=== PATIENT | female | born 1955 | race African-American/Black ===

== ENCOUNTER 2016-10-20 09:37 | Emergency (ER) | payer MEDICARE, OTHER ==
[~2016-10-20 09:37] MED LIST: ALBU8I INH; BENZ100 PO; VENTAER INH; ZITH250T PO
[2016-10-20 09:40] VITALS: BP 180/97; PULSE 78; RESP 24; TEMP 97.4; O2SAT 96
[2016-10-20] MEDS ORDERED: ASPI1TAB69 PO (10:30)
[2016-10-20] MEDS ORDERED: PRED20 PO (11:06)
[2016-10-20] MEDS ORDERED: AZIT250T3 PO (11:06)
--- NOTE | 2016-10-20 11:06 | PD ---
HPI Chief Complaint: Cold / Flu Symptoms Time Seen by Provider: 10:30 Travel History International Travel<30 days: No Contact w/Intl Traveler<30days: No Traveled to known affect area: No History of Present Illness HPI This is a 60-year-old female who presents to the emergency department with 1 week of shortness of breath and productive cough with yellow sputum, constant, moderate severity, with no associated fevers or chills. She has had copious nasal congestion and some subjective chills. She says she uses a breathing pump at home but that has not been helping. She denies any chest pain or orthopnea. PFSH Past Medical History Arthritis: Yes GERD: Yes Hypertension: Yes (DX - 2007) Musculoskeletal: Yes (CHRONIC BACK PAIN - DISK DISPLAEMENT, PER PT - 2006) ?: Not Menopausal: Yes Past Surgical History Section: Yes Eye Surgery: Yes (CATARACT) Social History Alcohol Use: Yes (BEER, ONCE A WEEK) Tobacco Use: No Substance Use: No Allergies-Medications (Allergen,Severity, Reaction): Coded Allergies: No Known Allergies (Verified , 10/20/16) Reported Meds & Prescriptions Reported Meds & Active Scripts Active Reported Aspirin 81 Mg Tabdr 81 Mg PO DAILY Review of Systems Except as stated in HPI: all other systems reviewed are Neg Physical Exam Narrative GENERAL:Well appearing, no acute distress SKIN: Warm and dry. HEAD: Atraumatic. Normocephalic. EYES: Pupils equal and round. No injection or drainage. ENT: Moist mucous membranes. Nasal congestion. NECK: Trachea midline. CARDIOVASCULAR: Regular rate and rhythm. No murmur appreciated. RESPIRATORY: Diffuse wheezing, no accessory muscle use, speaking full sentences GASTROINTESTINAL: Abdomen soft, non-tender, nondistended. MUSCULOSKELETAL: No obvious deformities. NEUROLOGICAL: Awake and alert. No obvious cranial nerve deficits. Moving all extremities. PSYCHIATRIC: Appropriate mood and affect; insight and judgment normal. Data Data Last Documented VS Vital Signs Date Time Temp Pulse Resp B/P Pulse Ox O2 Delivery O2 Flow Rate FiO2 10/20/16 10:25 20 10/20/16 09:40 97.4 78 180/97 96 Room Air MDM Medical Decision Making Medical Screen Exam Complete: Yes Emergency Medical Condition: Yes Interpretation(s) Afebrile, hypertensive Differential Diagnosis Bronchitis, pneumonia, COPD exacerbation, congestive heart failure Narrative Course This is a 60-year-old female who has a history of bronchitis who presents to the emergency department with 1 week of shortness of breath, nasal congestion and chills. I suspect she has a viral syndrome precipitating acute bronchitis. She is diffusely wheezing on exam. She was prescribed bronchodilators and prednisone as well as outpatient antibiotics. I don't think she requires imaging or further diagnostic testing. I considered congestive heart failure but she has no peripheral edema and her constitutional symptoms more suggestive of infectious etiology of her symptoms. She is not hypoxic so I don't think an x-ray is warranted at this time. Diagnosis Primary Impression: Acute bronchitis Qualified Code: J20.9 - Acute bronchitis, unspecified organism Patient Instructions: General Instructions Additional Instructions: If you develop severe shortness of breath, chest pain, or difficulty breathing return to the emergency department. Use albuterol every 4 hours for the next 2 days. Then use as needed for wheezing. Complete your course of steroids. Complete your course of antibiotics. Follow up with your primary care physician in 2-3 days if your symptoms have not improved. Med/Other Pt SpecificInfo: Prescription(s) given Scripts Azithromycin 250 Mg [id number] Mg PO DIRECTED #6 TAB Take 2 tabs (500 mg) on day 1 then 1 tab daily x 4 days. Prov:Humaira Villareal MD 10/20/16 Prednisone 20 Mg Tab40 Mg PO DAILY 4 Days Prov:Humaira Villareal MD 10/20/16 Disposition: 01 DISCHARGE HOME Condition: Stable Humaira Villareal MD Oct 20, 2016 11:06
[2016-10-20] MEDS ORDERED: predniSONE 20 MG TAB PO ONE (11:15)
[2016-10-20] MEDS: RESP: ALBUTEROL 2.5 MG/IPRATROPIUM 0.5 MG NEB (SCH) INH (11:20)
== END 2016-10-20 12:29 | disposition home or self-care (01) ==
LOC: NEPE 09:37
DX: J20.9 Acute bronchitis, unspecified (principal); I10 Essential (primary) hypertension
CPT/HCPCS: 94640; 94664; 99283; J7512

== ENCOUNTER 2017-01-29 09:39 | Emergency (ER) | payer OTHER ==
[~2017-01-29] VITALS: Ht 160 cm; Wt 110.0 kg
[~2017-01-29 09:39] MED LIST changes: -ALBU8I INH; +ASPI1TAB69 PO; +AZIT250T3 PO; -BENZ100 PO; +PRED20 PO; -VENTAER INH; -ZITH250T PO
[2017-01-29 09:41] VITALS: BP 194/112; PULSE 74; RESP 15; TEMP 98.2; O2SAT 99
[2017-01-29 10:06] VITALS: BP 241/101; PULSE 82; RESP 20; O2SAT 97
--- NOTE | 2017-01-29 10:08 | PD ---
HPI Chief Complaint: Edema Time Seen by Provider: 10:04 Travel History International Travel<30 days: No Contact w/Intl Traveler<30days: No Traveled to known affect area: No History of Present Illness HPI 61-year-old female with history of hypertension, presents to the ER today because she has had several days' history of increased swelling to her legs but the left leg is more swollen than the right. She states it feels irritated. She admits she has been having some mild shortness of breath intermittently. She denies any chest pains, fevers, or any other symptoms. Modifying Factors: None Associated Signs & Symptoms: Bilateral leg swelling Risk Factors: None PFSH Past Medical History Arthritis: Yes GERD: Yes Hypertension: Yes (DX - 2007) Musculoskeletal: Yes (CHRONIC BACK PAIN - DISK DISPLAEMENT, PER PT - 2006) Menopausal: Yes Past Surgical History Section: Yes Eye Surgery: Yes (CATARACT) Social History Alcohol Use: Yes (BEER, ONCE A WEEK) Tobacco Use: No Substance Use: No Allergies-Medications (Allergen,Severity, Reaction): Coded Allergies: No Known Allergies (Verified , 10/20/16) Reported Meds & Prescriptions Reported Meds & Active Scripts Active Reported Omeprazole 20 Mg Tab 20 Mg PO DAILY Aspirin Low Dose (Aspirin) 81 Mg Chew 81 Mg CHEW DAILY Review of Systems Except as stated in HPI: all other systems reviewed are Neg Physical Exam Narrative GENERAL: Well-developed elderly -[place] female patient currently in mild distress. Awake and oriented 3. SKIN: Focused skin assessment warm/dry. HEAD: Atraumatic. Normocephalic. EYES: Pupils equal and round. No scleral icterus. No injection or drainage. ENT: No nasal bleeding or discharge. Mucous membranes pink and moist. NECK: Trachea midline. No JVD. CARDIOVASCULAR: Regular rate and rhythm. No murmur appreciated. RESPIRATORY: No accessory muscle use. Clear to auscultation. Breath sounds equal bilaterally. GASTROINTESTINAL: Abdomen soft, non-tender, nondistended. Hepatic and splenic margins not palpable. MUSCULOSKELETAL: No obvious deformities. No clubbing. No cyanosis. Bilateral pitting edema the legs. Mild erythema bilaterally. NEUROLOGICAL: Awake and alert. No obvious cranial nerve deficits. Motor grossly within normal limits. Normal speech. PSYCHIATRIC: Appropriate mood and affect; insight and judgment normal. Data Data Last Documented VS Vital Signs Date Time Temp Pulse Resp B/P Pulse Ox O2 Delivery O2 Flow Rate FiO2 01/29/17 11:37 73 16 203/93 98 01/29/17 10:06 Room Air 01/29/17 09:41 98.2 Orders Complete Blood Count With Diff (01/29/17 10:04) Comprehensive Metabolic Panel (01/29/17 10:04) B-Type Natriuretic Peptide (01/29/17 10:04) Act Partial Throm Time (Ptt) (01/29/17 10:04) Prothrombin Time / Inr (Pt) (01/29/17 10:04) Iv Access Insert/Monitor (01/29/17 10:04) Electrocardiogram (01/29/17 10:04) Ecg Monitoring (01/29/17 10:04) Oximetry (01/29/17 10:04) Oxygen Administration (01/29/17 10:04) Chest, Single Ap (01/29/17 10:04) Sodium Chloride 0.9% Flush (Ns Flush) (01/29/17 10:15) Us Leg Venous Doppler Bilat (01/29/17 10:04) Labs Laboratory Tests Test 01/29/17 10:15 White Blood Count 6.9 TH/MM3 Red Blood Count 4.49 MIL/MM3 Hemoglobin 12.5 GM/DL Hematocrit 39.0 % Mean Corpuscular Volume 87.0 FL Mean Corpuscular Hemoglobin 27.8 PG Mean Corpuscular Hemoglobin 32.0 % Concent Red Cell Distribution Width 14.3 % Platelet Count 191 TH/MM3 Mean Platelet Volume 9.2 FL Neutrophils (%) (Auto) 61.4 % Lymphocytes (%) (Auto) 26.5 % Monocytes (%) (Auto) 8.6 % Eosinophils (%) (Auto) 3.0 % Basophils (%) (Auto) 0.5 % Neutrophils # (Auto) 4.2 TH/MM3 Lymphocytes # (Auto) 1.8 TH/MM3 Monocytes # (Auto) 0.6 TH/MM3 Eosinophils # (Auto) 0.2 TH/MM3 Basophils # (Auto) 0.0 TH/MM3 CBC Comment DIFF FINAL Differential Comment Prothrombin Time 10.3 SEC Prothromb Time International 0.9 RATIO Ratio Activated Partial 26.7 SEC Thromboplast Time Sodium Level 143 MEQ/L Potassium Level 3.8 MEQ/L Chloride Level 106 MEQ/L Carbon Dioxide Level 28.8 MEQ/L Anion Gap 8 MEQ/L Blood Urea Nitrogen 16 MG/DL Creatinine 0.82 MG/DL Estimat Glomerular Filtration 85 ML/MIN Rate Random Glucose 88 MG/DL Calcium Level 8.7 MG/DL Total Bilirubin 0.7 MG/DL Aspartate Amino Transf 12 U/L (AST/SGOT) Alanine Aminotransferase 20 U/L (ALT/SGPT) Alkaline Phosphatase 89 U/L B-Type Natriuretic Peptide 14 PG/ML Total Protein 7.2 GM/DL Albumin 3.5 GM/DL MDM Medical Decision Making Medical Screen Exam Complete: Yes Emergency Medical Condition: Yes Medical Record Reviewed: Yes Interpretation(s) EKG shows NSR, no ST elevation or depression, and no arrhythmias. No significant T-wave inversions. Laboratory Tests Test 01/29/17 10:15 Monocytes (%) (Auto) 8.6 % (0.0-8.0) Estimat Glomerular Filtration 85 ML/MIN (>89) Rate Aspartate Amino Transf 12 U/L (15-37) (AST/SGOT) Last 24 hours Impressions Lower Extremity Ultrasound 01/29/17 1004 Signed Impressions: Service Date/Time: Sunday, January 29, 2017 10:25 - CONCLUSION: Negative for deep venous thrombosis.. Generalized edema is present. Exam is limited by the patient's body habitus. Karlos Mena MD FACR Chest X-Ray 01/29/17 1004 Signed Impressions: Service Date/Time: Sunday, January 29, 2017 10:22 - CONCLUSION: No acute disease. Karlos Mena MD FACR Differential Diagnosis Bilateral leg edemadependent edema versus CHF versus DVTs versus leg cellulitis Narrative Course Ultrasound of legs did not reveal any signs of DVT. Chest x-ray did not show acute pulmonary processes. Her lab work is otherwise unremarkable for significant BNP elevation or leukocytosis. At this point, I suspect that this is mostly dependent edema although a small amount of cellulitis cannot be ruled out. My plan would be to give her antibiotics and diuretic and have her follow- up closely with primary care physician. Return for any worsening in symptoms as needed. The plan has been discussed with the patient and she states understanding. Diagnosis Primary Impression: Leg edema Med/Other Pt SpecificInfo: Prescription(s) given Scripts Sulfamethoxazole-Trimethoprim (Bactrim DS)800-160 Mg Tab1 Tab PO BID #14 TAB Ref 0 Prov:Jessica Boland MD 01/29/17 Furosemide (Lasix)20 Mg Tab20 Mg PO DAILY #10 TAB Ref 0 Prov:Jessica Boland MD 01/29/17 Disposition: 01 DISCHARGE HOME Condition: Stable Jessica Boland MD Jan 29, 2017 10:08
[2017-01-29] MEDS ORDERED: SODIUM CHLORIDE 0.9% FLUSH 10 ML FLUSH IVF PRN (10:15)
[2017-01-29] MEDS ORDERED: ASPI81CH37 CHEW (10:17)
[2017-01-29] MEDS ORDERED: OMEP20TA PO (10:31)
[2017-01-29 10:32] LABS: AUTOMATED NEUTROPHIL # 4.2 TH/MM3 (1.8-7.7); BASOPHIL % 0.5 % (0.0-2.0); EOSINOPHIL # 0.2 TH/MM3 (0-0.4); HEMO FLAGS DIFF FINAL; LYMPH % 26.5 % (9.0-44.0); LYMPHOCYTE # 1.8 TH/MM3 (1.0-4.8); MEAN CORPUSCULAR HEMOGLOBIN 27.8 PG (27.0-34.0); MONO % 8.6 % (0.0-8.0); NEUT % 61.4 % (16.0-70.0); PLATELET COUNT 191 TH/MM3 (150-450); RED BLOOD COUNT 4.49 MIL/MM3 (4.00-5.30); RED CELL DISTRIBUTION WIDTH 14.3 % (11.6-17.2); WHITE BLOOD COUNT 6.9 TH/MM3 (4.0-11.0)
--- NOTE | 2017-01-29 10:41 | RADRPT ---
EXAM DATE/TIME: 01/29/2017 10:22 [facility] COMPARISON: No previous studies available for comparison. INDICATIONS : Short of breath. MEDICAL HISTORY : Hypertension. SURGICAL HISTORY : None. ENCOUNTER: Initial ACUITY: 1 day PAIN SCORE: 0/10 LOCATION: Bilateral chest FINDINGS: A single view of the chest demonstrates the lungs to be symmetrically aerated without evidence of mas s, infiltrate or effusion. The cardiomediastinal contours are unremarkable. Osseous structures are intact. CONCLUSION: No acute disease. Karlos Mena MD FACR on January 29, 2017 at 10:39 Board Certified Radiologist. This report was verified electronically.
[2017-01-29 10:44] LABS: APTT (PATIENT) 26.7 SEC (24.3-30.1); INTERNATIONAL NORMALIZED RATIO 0.9 RATIO; PROTHROMBIN TIME - PATIENT 10.3 SEC (9.8-11.6)
[2017-01-29 11:00] LABS: ANION GAP 8 MEQ/L (5-15); AST (GOT) 12 U/L (15-37); BICARBONATE 28.8 MEQ/L (21.0-32.0); BLOOD UREA NITROGEN 16 MG/DL (7-18); CHLORIDE 106 MEQ/L (98-107); GLOMERULAR FILTRATION RATE 85 ML/MIN (>89); POTASSIUM 3.8 MEQ/L (3.5-5.1); SODIUM (NA) 143 MEQ/L (136-145)
[2017-01-29 11:01] LABS: ALT (GPT) 20 U/L (10-53)
[2017-01-29 11:03] LABS: ALKALINE PHOSPHATASE 89 U/L (45-117); TOTAL BILIRUBIN ADULT 0.7 MG/DL (0.2-1.0)
--- NOTE | 2017-01-29 11:08 | RADRPT ---
EXAM DATE/TIME: 01/29/2017 10:25 [facility] COMPARISON: No previous studies available for comparison. INDICATIONS : Bilateral leg swelling and pain. MEDICAL HISTORY : Hypertension. Gastroesophageal reflux disease. Arthritis. SURGICAL HISTORY : section. Ca taract. ENCOUNTER: Initial ACUITY: 2 day PAIN SCORE: 10/10 LOCATION: Bilateral leg. TECHNIQUE: Venous ultrasound of the left and right leg was performed from the inguinal ligament to the proximal calf. Real-time, color Doppler and spectral tracing, compression and augmentation techniques were us ed. FINDINGS: RIGHT LEG: There is normal compressibility of the deep venous system from the inguinal region to the proximal ca lf. No echogenic clot is seen in the lumen of the common femoral, femoral, popliteal, and posterior tibial veins. There is a normal response of the venous system to proximal and distal augmentation an d respiration. LEFT LEG: There is normal compressibility of the deep venous system from the inguinal region to the proximal ca lf. No echogenic clot is seen in the lumen of the common femoral, femoral, popliteal, and posterior tibial veins. There is a normal response of the venous system to proximal and distal augmentation an d respiration. CONCLUSION: Negative for deep venous thrombosis.. Generalized edema is present. Exam is limited by the patient's body habitus. Karlos Mena MD FACR on January 29, 2017 at 11:05 Board Certified Radiologist. This report was verified electronically.
[2017-01-29 11:37] VITALS: BP 203/93; PULSE 73; RESP 16; O2SAT 98
[2017-01-29] MEDS ORDERED: FURO1TAB62 PO (11:48)
[2017-01-29] MEDS ORDERED: BACT800T5 PO (11:48)
[2017-01-29 13:13] VITALS: BP 203/93
--- NOTE | 2017-01-30 11:14 | EKG ---
Date Performed: 01/29/2017 Time Performed: 10:24:52 PTAGE: 61 years EKG: Sinus rhythm LEFT ANTERIOR FASCICULAR BLOCK ABNORMAL ECG NO PREVIOUS TRACING DOCTOR: Rico Diego Interpretating Date/Time 01/30/2017 11:13:18
== END 2017-01-29 13:14 | disposition home or self-care (01) ==
LOC: NEPC 09:39
DX: R60.0 Localized edema (principal); R06.02 Shortness of breath; R94.31 Abnormal electrocardiogram [ECG] [EKG]; I10 Essential (primary) hypertension; Z87.39 Personal history of other diseases of the musculoskeletal system and connective tissue; Z87.19 Personal history of other diseases of the digestive system
CPT/HCPCS: 71010; 80053; 83880; 85025; 85610; 85730; 93005; 93970

== ENCOUNTER 2017-09-25 05:12 | Observation (INO) | payer OTHER ==
[~2017-09-25] VITALS: Ht 157.5 cm; Wt 92.2 kg
[2017-09-25] VITALS (10 sets, daily range): BP systolic 116–159; BP diastolic 66–94; PULSE 64–93; RESP 19–20; TEMP 97.4–98.4; O2SAT 96–98
[~2017-09-25 05:12] MED LIST changes: -ASPI1TAB69 PO; +ASPI81CH6 CHEW; -AZIT250T3 PO; +BACT800T5 PO; +FURO1TAB62 PO; +OMEP20TA93 PO; -PRED20 PO
[2017-09-25] MEDS ORDERED: CHLORHEXIDINE GLUCONATE 2 % 1 PACK (2 CLOTHS) TOPICAL PRN (06:15)
[2017-09-25] MEDS ORDERED: LACTATED RINGER'S 1000 ML IV PRN (06:15)
[2017-09-25] MEDS ORDERED: METOPROLOL TARTRATE 25 MG TAB PO PRN (06:15)
[2017-09-25] MEDS ORDERED: SODIUM CHLORID 0.9% 500 ML IV PRN (06:15)
[2017-09-25] MEDS ORDERED: ceFAZolin 2 GM PREMIX 50 ML IV SCH (06:30)
[2017-09-25] MEDS ORDERED: HEPARIN SODIUM - SQ 10,000 UNITS/ML VIAL SQ SCH (06:30)
[2017-09-25] MEDS: POVIDONE IODINE 5% (ANTISEPSIS KIT) 4 APPLICATIONS EACH NARE PRN ×2 (06:34→07:19)
[2017-09-25] MEDS ORDERED: ATOR40TA16 PO (06:57)
[2017-09-25] MEDS ORDERED: METF500T PO (06:57)
[2017-09-25] MEDS ORDERED: LISI40TA PO (06:57)
[2017-09-25] MEDS ORDERED: TRAM50TA PO (06:57)
[2017-09-25] MEDS ORDERED: ACETAMINOPHEN 1000 MG/100 ML 100 ML IV ONE (06:59)
[2017-09-25] MEDS ORDERED: ARTIFICIAL TEARS OPTH OINT 3.5 APPLIC/3.5 GM TUBO ONE (07:00)
[2017-09-25] MEDS ORDERED: SUGAMMADEX SODIUM 200 MG/2 ML VIAL IV PUSH ONE (07:00)
[2017-09-25] MEDS ORDERED: LIDOCAINE 1%/EPINEPHrine 1:100,000 SOLN 50 ML VIAL ONE (07:04)
[2017-09-25] MEDS ORDERED: FAMOTIDINE 20 MG/2 ML VIAL ONE (07:26)
[2017-09-25] MEDS ORDERED: FUROSEMIDE 20 MG/2 ML VIAL ONE (09:10)
[2017-09-25] MEDS ORDERED: METHYLENE BLUE 10 MG/ML VIAL OTHER ONE (09:49)
[2017-09-25] MEDS: ceFAZolin INJ 1,000 MG VIAL IV ONE ×2 (11:15→11:20)
[2017-09-25] MEDS ORDERED: DEXAMETHASONE SOD PHOS 4 MG/ML VIAL IV ONE (12:00)
[2017-09-25] MEDS ORDERED: PHENYLEPH/NS 1000 MCG/10 ML SYR IV ONE (12:00)
[2017-09-25] MEDS ORDERED: VECURONIUM BROMIDE 20 MG VIAL IV ONE (12:00)
[2017-09-25] MEDS ORDERED: ONDANSETRON HCL 4 MG/2 ML VIAL IV PUSH ONE (12:00)
[2017-09-25] MEDS ORDERED: ceFAZolin INJ 1,000 MG VIAL IV ONE (12:00)
[2017-09-25] MEDS ORDERED: ROCURONIUM INJ 50 MG/5 ML SYRINGE IV PUSH ONE (12:00)
[2017-09-25] MEDS ORDERED: ePHEDrine/NS 25 MG/5 ML SYRINGE IV ONE (12:00)
[2017-09-25] MEDS ORDERED: hydrALAZINE HCL 20 MG/ML VIAL IV ONE (12:00)
[2017-09-25] MEDS ORDERED: NORMOSOL R INJ 1,000 ML IV ONE (12:00)
[2017-09-25] MEDS ORDERED: KETOROLAC TROMETHAMINE 30 MG/ML (IVP) VIAL IV PUSH ONE (12:00)
[2017-09-25] MEDS ORDERED: PROPOFOL 200 MG/20 ML AMP IV ONE (12:00)
[2017-09-25] MEDS ORDERED: LIDOCAINE HCL 1% PF 5 ML SYRINGE OTHER ONE (12:00)
[2017-09-25] MEDS ORDERED: LORazepam 0.5 MG TAB PO PRN (12:30)
[2017-09-25] MEDS ORDERED: ONDANSETRON HCL 4 MG/2 ML VIAL IVP PRN (12:30)
[2017-09-25] MEDS ORDERED: SODIUM CHLORIDE 0.9% FLUSH 10 ML FLUSH IV FLUSH PRN (12:30)
[2017-09-25] MEDS ORDERED: oxyCODONE/ACETAMINOPHEN 5 MG/325 MG TAB PO PRN ×2 (12:30)
[2017-09-25] MEDS ORDERED: diphenhydrAMINE HCL 25 MG CAP PO PRN (12:30)
[2017-09-25] MEDS ORDERED: *RESP: ALBUTEROL 2.5 MG/3 ML NEB (PRN) PERIprocedural Use ONLY NEB ONE (12:35)
[2017-09-25] MEDS ORDERED: DO NOT ADM ANY ANTICOAGULANT DRUGS PRN (12:37)
[2017-09-25] MEDS ORDERED: MIDAZOLAM HCL 2 MG/2 ML VIAL ONE (12:55)
[2017-09-25] MEDS: D5-1/2 NS + KCL 20 MEQ INJ 1,000 ML IV SCH ×2 (13:00→22:46)
[2017-09-25] MEDS ORDERED: KETOROLAC TROMETHAMINE 30 MG/ML (IVP) VIAL ONE (13:02)
[2017-09-25] MEDS ORDERED: *morphine SULFATE 4 MG/ML PERIprocedure ONLY ONE (14:04)
--- NOTE | 2017-09-25 15:21 | PD.ONC.PN ---
Subjective Subjective Remarks post op note: pt is resting in bed RN at bedside to give oral Percocet for c/o pain alert and answering questions Objective Data Date Time Temp Pulse Resp B/P (MAP) Pulse Ox O2 Delivery O2 Flow Rate FiO2 09/25/17 15:06 97.4 83 20 158/94 (115) 96 09/25/17 12:38 96.7 90 14 164/104 (124) 100 Simple Mask 8 186/87 (120) 09/25/17 07:00 98.8 77 18 170/95 (120) 99 09/25/17 09/25/17 09/25/17 07:00 15:00 23:00 Intake Total 1500 ml Output Total 400 ml Balance 1100 ml Administered Medications Medications (Trade) Dose Ordered Sig/Johnny Route PRN Reason Start Time Stop Time Status Last Admin Dose Admin Povidone Iodine (Betadine 5% Antisepsis Kit) 1 applic FLASH WELDER PRN EACH NARE SEE LABEL COMMENTS 09/25/17 06:15 09/28/17 06:14 09/25/17 07:19 Heparin Sodium (Porcine) (Heparin Inj) 5,000 units FLASH WELDER SQ 09/25/17 06:30 09/25/17 23:59 09/25/17 06:50 Cefazolin Sodium/ Dextrose 50 ml @ 100 mls/hr FLASH WELDER IV 09/25/17 06:30 09/28/17 06:29 09/25/17 07:16 Potassium Chloride/Dextrose/ Sod Cl 1,000 ml @ 100 mls/hr Q10H IV 09/25/17 14:00 09/25/17 13:00 Objective Remarks GENERAL: Well-nourished, well-developed patient. SKIN: Warm and dry. HEAD: Normocephalic. EYES: No scleral icterus. No injection or drainage, pupils are pin point CARDIOVASCULAR: Regular rate and rhythm without murmurs. RESPIRATORY: Breath sounds equal bilaterally. No accessory muscle use. GASTROINTESTINAL: Abdomen soft, tender, SS are c/d/i EXTREMITIES: No cyanosis, or edema. MUSCULOSKELETAL: Adequate muscle tone. NEUROLOGICAL: No obvious focal deficit. Awake, alert Assessment/Plan Problem List: (1) Endometrial cancer ICD Codes: C54.1 - Malignant neoplasm of endometrium Plan: s/p RA lap hyst with BSO and omental bx post op orders in chart Percocet for pain ADAT ok to get OOB to chair with assistance will discontinue Gomez in am anticipate discharge in next 24 hours Isaias Last Sep 25, 2017 15:21
[2017-09-25] MEDS: INSULIN NovoLIN REGULAR SUPPLEMENTAL SCALE SQ SCH ×2 (16:47→20:30)
[2017-09-25] MEDS: KETOROLAC TROMETHAMINE 30 MG/ML (IVP) VIAL IVP SCH (18:21)
[2017-09-25] MEDS: SODIUM CHLORIDE 0.9% FLUSH 10 ML FLUSH IV FLUSH SCH (20:30)
[2017-09-25] MEDS ORDERED: ATORVASTATIN 40 MG TAB PO SCH (21:00)
[2017-09-26] VITALS (12 sets, daily range): BP systolic 100–118; BP diastolic 53–65; PULSE 82–98; RESP 18–20; TEMP 96–99; O2SAT 94–98
[2017-09-26] MEDS: KETOROLAC TROMETHAMINE 30 MG/ML (IVP) VIAL IVP SCH ×3 (00:25→11:47)
[2017-09-26 06:33] LABS: AUTOMATED NEUTROPHIL # 14.8 TH/MM3 (1.8-7.7); BASOPHIL % 0.2 % (0.0-2.0); HEMATOCRIT 31.9 % (35.0-46.0); HEMOGLOBIN 10.4 GM/DL (11.6-15.3); LYMPH % 8.9 % (9.0-44.0); LYMPHOCYTE # 1.6 TH/MM3 (1.0-4.8); MEAN CELL VOLUME 85.9 FL (80.0-100.0); MEAN CORPUSCULAR HEMOGLOBIN 28.1 PG (27.0-34.0); MEAN CORPUSCULAR HGB CONC 32.7 % (32.0-36.0); MEAN PLATELET VOLUME 8.8 FL (7.0-11.0); MONO % 6.1 % (0.0-8.0); MONOCYTE # 1.1 TH/MM3 (0-0.9); NEUT % 84.8 % (16.0-70.0); PLATELET COUNT 267 TH/MM3 (150-450); RED BLOOD COUNT 3.71 MIL/MM3 (4.00-5.30); RED CELL DISTRIBUTION WIDTH 15.2 % (11.6-17.2); WHITE BLOOD COUNT 17.5 TH/MM3 (4.0-11.0)
[2017-09-26 07:04] LABS: BICARBONATE 26.9 MEQ/L (21.0-32.0); CALCIUM 8.5 MG/DL (8.5-10.1); CREATININE 1.08 MG/DL (0.50-1.00)
[2017-09-26] MEDS ORDERED: OXYC1TAB63 PO (07:56)
[2017-09-26] MEDS: INSULIN NovoLIN REGULAR SUPPLEMENTAL SCALE SQ SCH ×2 (08:00→11:47)
[2017-09-26] MEDS: D5-1/2 NS + KCL 20 MEQ INJ 1,000 ML IV SCH (08:54)
[2017-09-26] MEDS: SODIUM CHLORIDE 0.9% FLUSH 10 ML FLUSH IV FLUSH SCH (08:56)
[2017-09-26] MEDS ORDERED: FUROSEMIDE 20 MG TAB PO SCH (09:00)
[2017-09-26] MEDS ORDERED: PANTOPRAZOLE SOD 20 MG DELAYED RELEASE TAB PO SCH (09:00)
[2017-09-26] MEDS ORDERED: LISINOPRIL 20 MG TAB PO SCH (09:00)
--- NOTE | 2017-09-26 11:09 | MP ---
cc: MOY WANG MD, JULIE D. MD LEE,MARQUISE Sun MD DATE OF SURGERY 09/25/2017 PREOPERATIVE DIAGNOSIS 1. Grade 2 endometrial adenocarcinoma 2. Postmenopausal bleeding. POSTOPERATIVE DIAGNOSIS 1. Grade 2 endometrial adenocarcinoma 2. Postmenopausal bleeding. 3. Extensive intra-abdominal and intrapelvic adhesions. PROCEDURE Robotic-assisted laparoscopic hysterectomy, bilateral salpingo-oophorectomy, extensive lysis of adhesions, omental biopsy, bilateral pelvic retroperitoneal exploration. SURGEON Moy Wang MD DROP HAMMER SET UP OPERATOR [place] certified first assistant ANESTHESIA General endotracheal anesthesia ESTIMATED BLOOD LOSS 200 cc IV FLUIDS 1500 cc URINE OUTPUT 200 cc HISTORY This is a 61-year-old female with postmenopausal bleeding since at least May of last year that led to imaging and biopsy imaging showing a prominent uterus, prominent endometrium with no overt adenopathy in the pelvis or periaortic region. No overt evidence to suggest metastatic disease. A biopsy showed grade 2 endometrioid adenocarcinoma. She has been counseled regarding these findings. Surgery is considered. She is in favor of surgery and prefers minimally invasive techniques. She is seen in the preop holding area again prior to surgery where the findings are again discussed. The plan of care is reviewed. Questions were asked and answered. She expressed a good understanding and agreed to move forward with surgery. FINDINGS The uterine cavity was somewhat distorted, sounded to 6 cm although the uterus itself seen palpably approximately 10 cm. It was globular at the fundus possibly due to a leiomyoma, but the initial positioning of the V-Care manipulator was adjusted and it suggested that there may still be some abnormality within the endometrial cavity that distorts the normal cavity of the endometrium. The tubes and ovaries grossly appeared normal. There was no overt evidence of disease beyond the uterus. The liver diaphragm edges were smooth. The omentum grossly appeared normal. The large and small bowel and adjacent mesentery appeared normal. There appeared to be some diverticulum without evidence of diverticulitis. The uterus, once removed, showed intermediate findings of tumor of approximately 3.5 cm and it seemed to invade in the myometrium approximately 50% of the depth of the myometrium. No cervical extension. Within the abdomen, the omentum is adherent to the anterior abdominal wall, the umbilicus against the left lower abdominal wall and along the previous midline vertical incision. In the pelvis, the adhesions are extensive. There seems to be some anatomical distortion. The round ligaments have been either been previously transected or drawn up adherent to the lower anterior pelvic wall. The tubes and ovaries are adherent to the round ligament on the right side and on the left side similarly adherent, but with the colon draped over the adnexa affixed against the left pelvic sidewall, the posterior cul-de-sac is obliterated. In the anterior pelvis, the bladder is adherent all the way to the fundus of the uterus multiple bands of adhesive tissue affixing the pelvic structures to adjacent structures. STATEMENT OF COMPLEXITY/MODIFIER At least 90 additional minutes were added to the surgery and the complexity of this surgery due to the extensive adhesions and the time required to lyse adhesions to gain safe surgical entrance to reestablish normal anatomy and to accomplish surgical objectives. Furthermore, she has a BMI of 39.2 with diabetes. Modifier should be applied accordingly. PROCEDURE She was taken to the operating room and placed in the dorsal lithotomy position after general endotracheal anesthesia was administered. A time-out was undertaken. She was identified by sight recognition and hospital ID bracelet and the proposed procedure was reviewed and confirmed. She was carefully positioned in padded Duran stirrups. Her arms were padded and secured to the sides. She was further secured to the operating table with egg crate padding and tape in a cross chest over the shoulder fashion. All sites were noted to be properly aligned with no malalignments or pressure points. She was prepped, draped in a sterile fashion, placed in high lithotomy position. She had a narrow nulliparous outlet. The cervix appeared small. The cervix was grasped, uterine cavity sounded to 6 cm, but with some deviation to the sound into the V-Care manipulator which was eventually repositioned for better placement at the fundus as the size of the uterus was more like 10 cm. The V-Care head was secured in the usual fashion. Gomez catheter placed in the bladder. She was returned to low lithotomy position. A change of sterile gloves was undertaken. We completed draping in anticipation of laparoscopy, confirmed that an orogastric tube was in the stomach on suction. With manual elevation of the abdominal wall and direct laparoscopic visualization, a 5 mm cannula placed in the left upper quadrant into the peritoneal cavity and an atraumatic entry was confirmed. Carbon dioxide gas was insufflated. A 12 mm cannula was placed in the midline above the umbilicus. An 8 mm cannula was placed in the right upper quadrant. Blunt dissection, sharp dissection, and focal cautery were used to take down the omentum from its adherence to the anterior abdominal wall. The distal edge of the omentum was draped all the way down into the pelvis and was adherent to the right side of the uterus and adnexa. This was mobilized with sharp dissection, focal cautery. A small piece of omentum distally was left attached to the uterus and the omentum was further mobilized from against the right pelvic side wall until it was freed up to be retracted into the abdomen. Other than the adhesions, the omentum grossly appeared normal. The anatomy was surveyed with findings as described above. She was placed in Trendelenburg position. Peritoneal washings were obtained for cytology. The small bowel was folded back on its mesenteric root and three Ray-Leonidas sponges were placed around the root of the small bowel mesentery. The robotic system was brought into the operative field, attached in usual fashion. Monopolar scissors, fenestrated bipolar forceps and Prograsp manipulators were placed in arms #1, 2 and 3 respectively and I took my place at the surgeon's console. Extensive time was spent lysing adhesions that were described above. The right round ligament was never clearly identified. There was essentially just sheets of scar tissue all extending from the right pelvic sidewall all the way to the uterus with the fallopian tube and ovary adherent to what may have been a right round ligament remnant and surrounding adhesions. The retroperitoneal dissection was carried out after initial lysis of adhesions. Dissection continued until the right ureter was identified. The right infundibulopelvic ligament was isolated. The intervening peritoneum was opened. The ureter was retracted posteriorly as the infundibulopelvic ligament was elevated ventrally. The infundibulopelvic ligament was isolated to the level of the pelvic brim where it was cauterized and transected. The adhesions were taken down from the posterior peritoneum between the pericolonic fat and the peritoneum to reopen the posterior cul-de-sac. Visibility was challenging due to her central obesity, redundant sigmoid colon, and pericolonic fat. Attempts were made to identify the vesicouterine peritoneum which were initially not successful. Dense adhesions were such that the bladder was stuck to the uterine fundus. Sharp dissection and blunt dissection were used to mobilize this bladder from the uterine fundus, folded back on itself until the peritoneum could be better clearly identified at which point, the uterine vessels on the right side were skeletonized, but as the bladder flap was not yet completely dissected, attention was now redirected toward the left side. Lysis of adhesions was carried out to mobilize the colon from its attachments to the left pelvic sidewall. The pericolonic fat was taken down from the adnexa and the adnexa were removed from the region of the round ligament. Again, it is uncertain if the round ligament was every clearly identified. It may have been transected with a previous surgery or repositioned with surgery. Nevertheless, the retroperitoneum was opened. What was in the region of the round ligament was cauterized thoroughly. The peritoneum was opened. Dissection was carried out until the left ureter was identified. The left infundibulopelvic ligament was isolated. The intervening peritoneum was opened. The infundibulopelvic ligament was skeletonized to the level of the pelvic brim where it was cauterized and transected. Posterior adhesions were taken down with sharp dissection until the left tube and ovary could be completely mobilized and additional adhesions were taken down. Similarly, there were adhesive bands between the uterus and the left pelvic sidewall which were isolated, taken down with sharp and blunt dissection with focal cautery. Now attention was redirected to try to better identify and the bladder edge. The additional adhesions were taken down with sharp dissection. The peritoneum was isolated and with sharp dissection and blunt dissection, the vesicouterine peritoneum was able to be identified and then with sharp dissection, blunt dissection, the bladder was retracted below the level of the cervix and the upper vagina. Attention was redirected toward the right side where similarly dissection below the scar takes tissue allowed identification of the vesicouterine peritoneum. The bladder was dissected below the level of the cervix and the upper vagina. The scar tissue was taken down with sharp dissection and focal cautery and then follow up dissection ensured that the bladder was well retracted now below the level of the cervix. Now that the circumferential tissues had been dissected, the uterine vessels were skeletonized further and cauterized thoroughly. The uterus blanched confirming that the main blood supply to the uterus had been secured. The left uterine vessels were transected. The cardinal, paracervical, and uterosacral ligaments were isolated, cauterized and transected in a stepwise fashion thereby freeing the attachments along the left side of the uterus and cervix. Attention was directed toward the right side where the right uterine vessels were transected. The cardinal, paracervical, and uterosacral ligaments were isolated, cauterized and transected in stepwise fashion thereby freeing the attachments along the right side of the uterus and cervix. Circumferential colpotomy was performed following the V-Care manipulator the cervix from the upper vagina as the uterus was large relative to the small pelvic outlet, I left the surgeon's console to help deliver the specimen. The cervix was grasped with tenaculums after the V-Care manipulator was removed. Sharp curetting removed a small to moderate amount of tumor and did not reduce the size of the uterus by any great extent, but with counter traction and manipulation, the specimen was able to be delivered transvaginally which included uterus, cervix, tubes and ovaries. A Pneumooccluder balloon was placed in the vagina to maintain pneumoperitoneum. I returned to the surgeon's console and instruments 1 and 3 exchanged for needle drivers. A 0 Vicryl suture was introduced. The vaginal cuff was closed starting at the left corner with a full-thickness closure including the posterior uterosacral ligament, posterior peritoneum were incorporated, tied via instrument tie. Countertraction was held on the suture as a full-thickness running continuous closure was carried across the vaginal apex to the contralateral corner where it was similarly affixed, secured, tied via instrument tie. The needle was cut and removed. The integrity of the bladder was confirmed by filling the bladder with saline dyed with methylene blue. It distended nicely under pressure. There was a good margin between the vaginal cuff suture line and the edge of the bladder. There were no areas of weakness, no visible blue, certainly no extravasation of dye. Good peristalsis of the ureters bilaterally and the bladder was drained. The pelvis was thoroughly irrigated. Small bleeders rendered hemostatic with bipolar cautery. Pathology came back with findings as described above. Intermediate risk factors, the retroperitoneal dissection was carried out bilaterally opening up the obturator, paravesical, and pararectal spaces enough to visibly and palpably inspect the lymph node basins first on the right side and then on the left side, as well as visible and palpable inspection of the periaortic and pericaval regions. There were no prominent lymph nodes. No abnormal or enlarged lymph nodes. Similarly, there were no abnormal findings on CT scan. Taking into account that she had been under anesthesia for a significant period of time, no overt evidence to suggest metastatic disease and the uncertainty as to whether or not she would ever consider any adjuvant therapy based on prior discussions, it was felt that the morbidity of lymphadenectomy may and prolonging the surgery may exceed potential benefit and therefore it was felt in this individual all reasonable surgical objectives had been completed. A small piece of omentum that had been adherent to the uterus and anterior abdominal wall had been removed from the uterus and now removed from the anterior abdominal wall and was collected laparoscopically and sent as omental biopsy for permanent histopathologic analysis. The robotic instruments were removed. The robotic system was disengaged from the operative field. I reentered the bedside under sterile condition. Each of the three Ray-Leonidas sponges that were placed in the peritoneum were now removed through the 12-mm cannula. Each were inspected and noted to be removed in their entirety. Visual inspection confirmed there were no remaining foreign objects in the peritoneal cavity. The sites were hemostatic. Preliminary counts were correct. The 12-mm fascial defect was closed with interrupted 0 Vicryl sutures using a needle pass fascia closure apparatus. This rendered the fascia completely airtight and hemostatic. The remaining cannulas were withdrawn. Carbon dioxide gas was removed. 3-0 Vicryl subcutaneous, 3-0 Vicryl subcuticular and Steri-Strips used to close these incisions. She was returned to dorsal lithotomy position. Pelvic exam confirmed that there were no remaining foreign objects in the vagina. The vaginal cuff was well supported and hemostatic. There were no vaginal lacerations. It should be noted that some hemostatic Surgicel powder had been placed across the vaginal cuff laparoscopically. A small amount of remaining hemostatic powder was placed along the vaginal cuff suture line. She was returned to dorsal supine position. Final counts were correct. She was pending reversal of anesthesia when I left the operating room to precede to the Post Anesthesia Care Unit. MD CANDICE Wolfe/ROBBY /2:01 PM /10:38 AM
== END 2017-09-26 13:32 | disposition home or self-care (01) ==
LOC: HSDC 05:12 → HSDI 12:36 → HCIN 14:49
PROVIDERS: ADMIT Obstetrics & Gynecology Gynecologic Oncology; ATTEND Obstetrics & Gynecology Gynecologic Oncology
DX: C54.1 Malignant neoplasm of endometrium (principal); N95.0 Postmenopausal bleeding; K66.0 Peritoneal adhesions (postprocedural) (postinfection); N73.6 Female pelvic peritoneal adhesions (postinfective); N80.0 Endometriosis of uterus; I10 Essential (primary) hypertension; E78.00 Pure hypercholesterolemia, unspecified; E11.9 Type 2 diabetes mellitus without complications; K21.9 Gastro-esophageal reflux disease without esophagitis
CPT/HCPCS: 00790; 00840; 00860; 49010; 49321; 58571; 58660; 80048; 82948; 85025; 86850; 86900; 86901; 88112; 88305; 88309; 88331; 94150; 94664; 96361; 96372; 96374; 96376; G0378; J0131; J0360; J0690; J1100; J1644; J1885; J1940; J2250; J2270; J2370; J2405; J3010; J3480; J7120; J7613; S2900